=== PATIENT | female | born 1990 | race Caucasian/White ===

== ENCOUNTER 2021-06-11 19:19 | Emergency (ER) | payer OTHER ==
[2021-06-11 19:52] LABS: HEMOGLOBIN 11.5 gm/dl (12.3-15.3); RED BLOOD COUNT 4.39 M/UL (4.00-5.10); WHITE BLOOD COUNT 6.8 K/UL (4.5-11.0)
[2021-06-11 20:24] LABS: BUN/CREATININE RATIO 12 (0-10)
== END 2021-06-11 22:20 | disposition home or self-care (01) ==
LOC: ER1 19:19
PROVIDERS: Student in an Organized Health Care Education/Training Program
DX: F44.5 Conversion disorder with seizures or convulsions (principal)
CPT/HCPCS: 80053; 80307; 81001; 82550; 82553; 83735; 83874; 84100; 84439; 84443; 84484; 84702; 84703; 85025; 93005; 99284

== ENCOUNTER 2021-11-24 14:52 | Emergency (ER) | payer OTHER ==
[2021-11-24 15:44] LABS: HEMOGLOBIN 11.5 gm/dl (12.3-15.3); RED BLOOD COUNT 4.48 M/UL (4.00-5.10); WHITE BLOOD COUNT 6.6 K/UL (4.5-11.0)
[2021-11-24 16:05] LABS: BUN/CREATININE RATIO 13 (0-10)
[2021-11-24] MEDS ORDERED: HYDROXYZINE HCL50 MG PO (17:08)
== END 2021-11-24 17:55 | disposition home or self-care (01) ==
LOC: ER1 14:52
PROVIDERS: Emergency Medicine
DX: R56.9 Unspecified convulsions (principal); R53.1 Weakness
CPT/HCPCS: 80048; 84703; 85025; 93005; 96372; 99285; J2060; J3410; J7030

== ENCOUNTER 2021-11-30 17:50 | Emergency (ER) | payer OTHER ==
[~2021-11-30 17:50] MED LIST: HYDROXYZINE HCL50 MG PO
== END 2021-11-30 18:40 | disposition home or self-care (01) ==
LOC: ER1 17:50
DX: G40.409 Other generalized epilepsy and epileptic syndromes, not intractable, without status epilepticus (principal)
CPT/HCPCS: 93005; 99285

== ENCOUNTER 2022-02-16 15:15 | Inpatient (IN) | payer OTHER ==
[~2022-02-16] VITALS: Ht 152.4 cm; Wt 112.3 kg
[2022-02-16 16:06] LABS: HEMOGLOBIN 10.8 gm/dl (12.3-15.3); RED BLOOD COUNT 4.21 M/UL (4.00-5.10); WHITE BLOOD COUNT 5.9 K/UL (4.5-11.0)
[2022-02-16 16:31] LABS: BUN/CREATININE RATIO 20 (0-10)
[2022-02-16] MEDS ORDERED: TOPAMAX50 MG PO (22:22)
[2022-02-16] MEDS ORDERED: CEPHALEXIN500 MG PO (22:23)
[2022-02-16] MEDS ORDERED: OMEPRAZOLE20 MG PO (22:23)
--- NOTE | 2022-02-17 09:53 | NUR ---
PATIENT NOTED TO HAVE A WITNESSED SEIZURE BY NURSING STAFF WHILE MD AT BEDSIDE. PATIENT HAVING JERKING MOVEMENTS WELL EYE ROLLING AND NON RESPONSIVE TO STIMULI. PATIENT WAS GIVEN ATIVAN EMERGENTLY PER VERBAL ORDER FROM MD. DISCUSSED PATIENT SAFETYCASE WITH [employer] AND SHE APPROVED FOR PATIENT TO BE MOVED CLOSER TO NURSING STATION AND TO HAVE A SITTER IF NEEDED TO WATCH THE PATIENT CLOSER.
--- NOTE | 2022-02-17 11:22 | NUR ---
APPROVED TELE REMOVAL FOR MRI AT THIS TIME
[2022-02-18 06:29] LABS: HEMOGLOBIN 11.2 gm/dl (12.3-15.3); RED BLOOD COUNT 4.37 M/UL (4.00-5.10); WHITE BLOOD COUNT 5.4 K/UL (4.5-11.0)
[2022-02-18 07:01] LABS: BUN/CREATININE RATIO 14 (0-10)
--- NOTE | 2022-02-18 09:53 | NUR ---
PATIENT NOTED TO HAVE A SEIZURE AT THIS TIME. AWARE.
[2022-02-19 02:06] LABS: HEMOGLOBIN 11.2 gm/dl (12.3-15.3); RED BLOOD COUNT 4.43 M/UL (4.00-5.10); WHITE BLOOD COUNT 5.4 K/UL (4.5-11.0)
[2022-02-19 02:21] LABS: BUN/CREATININE RATIO 17 (0-10)
--- NOTE | 2022-02-19 13:13 | NUR ---
PATIENT INFORMED OF RISK OF LEAVING AMA. PATIENT DECIDED SHE WANTED TO LEAVE AMA, PHYSICIAN AWARE.
== END 2022-02-19 12:31 | disposition left against medical advice (07) | DRG 101 ==
LOC: ER1 15:15 → M/S 20:42 → CDU 20:42 → M/S 22:20
PROVIDERS: Internal Medicine; Physician Assistant Medical; ADMIT Internal Medicine
DX: G40.909 Epilepsy, unspecified, not intractable, without status epilepticus (principal); D64.9 Anemia, unspecified; Z98.890 Other specified postprocedural states; Z79.899 Other long term (current) drug therapy
CPT/HCPCS: 36415; 70450; 70553; 80048; 80053; 80307; 81001; 83605; 83735; 84703; 85025; 96374; 96375; 96376; 99285; A9577; J1650; J1953; J2060